=== PATIENT | female | born 1950 | race Caucasian/White ===

== ENCOUNTER 2023-08-13 18:02 | Observation (INO) | payer OTHER, MEDICARE ==
[~2023-08-13] VITALS: Ht 160 cm; Wt 68.0 kg
[2023-08-13] MEDS ORDERED: Ondansetron HCl 2 MG / ML 2ML Vial ONE (18:33)
[2023-08-13 18:40] LABS: Albumin, Blood 3.8 g/dL (3.4-5.0); Albumin/Globulin Ratio 1.2 (0.8-1.8); Bilirubin, Total 0.7 mg/dL (0.1-1.0); Bun/Creatinine Ratio 25.2 (12.0-20.0); Calcium, Blood 9.9 mg/dL (8.5-10.1); Creatinine, Blood 1.35 mg/dL (0.40-1.00); Globulin, Blood 3.3 g/dL (2.2-4.0); Potassium, Blood 3.4 mmol/L (3.5-5.5); Total Protein, Blood 7.1 g/dL (6.4-8.2)
[2023-08-13 19:05] LABS: International Normalized Ratio 0.98; Prothrombin Time Results 10.5 Sec (9.7-11.5)
[2023-08-13 19:27] LABS: BASOPHILS ABSOLUTE AUTO 0.06 K/mm3 (0.00-0.23); BASOPHILS PERCENT AUTO 0 % (0-2); EOSINOPHILS ABSOLUTE AUTO 0.01 K/mm3 (0.00-0.68); EOSINOPHILS PERCENT AUTO 0 % (0-6); Hematocrit 40.2 % (33.0-51.0); Hemoglobin 13.3 g/dL (11.5-16.0); IMMATURE GRAN ABSOLUTE AUTO 0.16 K/mm3 (0.00-0.10); IMMATURE GRAN PERCENT AUTO 1 % (0-1); LYMPHOCYTES ABSOLUTE AUTO 1.35 K/mm3 (0.84-5.20); LYMPHOCYTES PERCENT AUTO 7 % (21-46); MONOCYTES PERCENT AUTO 9 % (4-13); Mean Corpuscular HGB 29.8 pg (26.0-34.0); Mean Corpuscular HGB Conc 33.1 g/dL (31.5-36.5); Mean Corpuscular Volume 90 fL (80-100); Mean Platelet Volume 10.2 fL (9.1-12.4); NEUTROPHILS ABSOLUTE AUTO 16.94 K/mm3 (1.96-9.15); NEUTROPHILS PERCENT AUTO 83 % (41-73); Platelet Count 299 K/mm3 (150-400); RDW Coefficient Variation 13.1 % (11.7-14.2); Red Blood Cell Count 4.47 M/mm3 (3.80-5.20); White Blood Cell Count 20.32 K/mm3 (4.00-11.30)
[2023-08-13] MEDS ORDERED: FentaNYL Citrate 50 MCG/ML 2 ML Injection IV ONE ×2 (19:30→20:30)
[2023-08-13] MEDS ORDERED: Acetaminophen 325 MG TABLET PO PRN (21:00)
[2023-08-13] MEDS ORDERED: Ondansetron HCl 2 MG / ML 2ML Vial IV PRN (21:00)
[2023-08-13] MEDS ORDERED: FentaNYL Citrate 50 MCG/ML 2 ML Injection IV PRN (21:05)
[2023-08-14] MEDS ORDERED: HYDROmorphone HCl/Pf 1MG SYR IV ONE
== END 2023-08-14 12:10 | disposition short-term general hospital (02) ==
LOC: ER 18:02 → SURS 18:03
PROVIDERS: Student in an Organized Health Care Education/Training Program; ADMIT Surgery
DX: S32.402A Unspecified fracture of left acetabulum, initial encounter for closed fracture (principal); I10 Essential (primary) hypertension; I31.39 Other pericardial effusion (noninflammatory); Z88.0 Allergy status to penicillin; V49.19XA Passenger injured in collision with other motor vehicles in nontraffic accident, initial encounter
CPT/HCPCS: 70450; 71045; 71260; 72125; 73502; 73560-LT; 73590; 74177; 80053; 83735; 85025; 85610; 93005; 93010; 96374-59; 96375; 96375-59; 96376-59; 99285-25; A9270; J1170; J2405; J3010; Q9967